=== PATIENT | male | born 1940 | race Caucasian/White ===

== ENCOUNTER 2020-12-11 15:07 | Inpatient (IN) | payer MEDICARE, OTHER ==
[~2020-12-11] VITALS: Ht 175.3 cm; Wt 92.5 kg
--- NOTE | 2020-12-11 14:33 | NUR ---
PT RECIEVED BY PRIVATE CAR TO ROOM 1111B,ORIENTED TO ROOM AND SURROUNDINGS.CL IN REACH.INCISIONS C/D/I.HAS PRESSURE ULCER TO RT BUTTOCK.MEPILEX DRSG APPLIED.
[2020-12-11 16:40] VITALS: BP 140/61; BMI 30.8
[2020-12-11] MEDS ORDERED: NORVASC10 MG PO (18:17)
[2020-12-11] MEDS ORDERED: VITAMIN D325 MC1 PO (18:20)
[2020-12-11] MEDS ORDERED: LIPITOR40 MG PO (18:20)
[2020-12-11] MEDS ORDERED: OSTEO BI-FLEX1 EAC1 PO (18:21)
[2020-12-11] MEDS ORDERED: FLORANEX / LACT1 TAB PO (18:21)
[2020-12-11] MEDS ORDERED: LEVOXYL50 MCG PO (18:22)
[2020-12-11] MEDS ORDERED: FISH OIL 1,0001 CA1 PO (18:22)
[2020-12-11] MEDS ORDERED: BAYER CHEWABLE81 MG PO (18:24)
[2020-12-11] MEDS ORDERED: BUMETANIDE0.5 MG PO (18:24)
[2020-12-11] MEDS ORDERED: PACERONE200 MG PO (18:24)
[2020-12-11] MEDS ORDERED: HYDRALAZINE HCL25 MG PO (18:25)
[2020-12-11] MEDS ORDERED: COLACE100 MG PO (18:25)
[2020-12-11] MEDS ORDERED: OXYBUTYNIN CHLOR5 MG PO (18:26)
[2020-12-11] MEDS ORDERED: METOPROLOL TART25 MG PO (18:26)
[2020-12-11] MEDS ORDERED: POTASSIUM CHLO10 ME1 PO (18:27)
--- NOTE | 2020-12-11 19:45 | NUR ---
AWAKE AND ALERT. RESTING IN BED WITH RESPIRAITONS SLIGHTLY LABORED. STATES HE JUST GOT UP TO BATHROOM AND GOT SHORT OF BREATH. O2/3L ON PER NASAL CANNULA. REMINDED TO ALWAYS CALL FOR ASSISTANCE BEFORE GETTING OUT BED. VOICED UNDERSTANDING. CHEST CABG INCISION HEALING AND NO OPEN AREAS OR DRAINAGE NOTED. LEFT LEG HARVEST SITE INCISIONS HEALING WITH NO DRAINAGE. DRESSING TO LOWER ABDOMEN DRAIN SITE INCSIONS DRY AND INTACT. NO ACUTE DISTRESS NOTED. CALL LIGHT IN REACH.
--- NOTE | 2020-12-12 05:01 | NUR ---
QUIET HOURS. NO ACUTE CHANGES IN CONDITION THIS SHIFT. NO DISTRESS NOTED.
[2020-12-12 06:57] LABS: ANION GAP 10.9 mmol/L (8-16); CALCIUM 8.7 mg/dL (8.5-10.1); CREATININE - SERUM 1.5 mg/dL (0.6-1.3); POTASSIUM - SERUM 3.9 mmol/L (3.5-5.1)
[2020-12-12 07:24] LABS: BASOPHILS 0.2 % (0-2); EOSINOPHILS 6.2 % (0-7); HEMATOCRIT 25.3 % (42.0-54.0); IMMATURE GRANULOCYTES 1.6 % (0-5); LYMPHOCYTE ABS# 1.29 10x3/uL (1.32-3.57); LYMPHOCYTES 13.2 % (15-50); MCH 25.3 pg (26.0-34.0); MCHC 29.6 g/dL (31.0-37.0); MCV 85.5 fL (80.0-100.0); MEAN PLATELET VOLUME 8.7 fL (7.4-10.4); MONOCYTES 8.5 % (2-11); NEUTROPHIL ABS# 6.87 10x3/uL (1.78-5.38); NEUTROPHILS 70.3 % (40-80); PLATELET COUNT 360 10x3/uL (130-400); RBC 2.96 10x6/uL (4.20-6.10); RDW 19.1 % (11.5-14.5); WBC 9.8 10x3/uL (4.8-10.8)
[2020-12-12 07:36] VITALS: BP 116/65
[2020-12-12 07:42] LABS: HEMOGLOBIN 7.5 g/dL (13.5-17.5)
[2020-12-12 13:54] VITALS: BMI 30.7
--- NOTE | 2020-12-12 14:36 | NUR ---
RESTING ON SIDE IN HIS BED IN HIS ROOM. DSG CHANGE DONE TO RT BUTTOCK. INJURY IS 1.5 X 0.5 CM. SHALLOW AND HAS DK PINK WOUND BED. NO S/S INFECTION NOTED. IT IS NOT OPEN AND APPEARS TO BE IN HEALING STAGES. DUODERM APPLIED AND ENCOURAGED HIM TO LAY ON SIDES INSTEAD OF BACK. INSIDE OF LLE IS BRUISED. CHEST INCISION IS HEALING NICELY WITH NO S/S INFECTION. X2 CLOSED INCISIONS NOTED AT BOTTOM OF CHEST INCISION (ACTUALLY ON TOP PART OF ABD). THEY ARE OPEN TO AIR. HE DENIES PAIN BUT C/O SOB WITH EXERTION AND TIRES EASILY. DR CARDOZA WAS MADE AWARE OF HIS LAB VALUES THIS MORNING AND AGAIN IN IDT MEETING AT NOON TODAY. ENOURGED PT TO BREATH THROUGH NOSE AND OUT MOUTH. BED IN LOWEST POSITION, HEAD OF BED ELEVATED APPX 45 DEGREES, SIDE RAILS UP X2, CELL PHONE AND CALL LIGHT IN REACH
--- NOTE | 2020-12-12 19:20 | NUR ---
RECEIVED PT LYING IN BED AWAKE. ALERT AND ORIENTED X4. DENIES ANY NEEDS OR PAIN. NO DISTRESS NOTED. MIDSTERNAL INCISION WELL APPROXIMATED AND HEALING. LLE HARVEST SITE INCISION WELL APPROXIMATED. BED WAIVER SIGNED ON FILE. CALL LIGHT AND WATER WITHIN REACH. FALL PRECAUTIONS IN PLACE. CPOC
[2020-12-12 20:29] VITALS: BP 117/56
[2020-12-13] VITALS (7 sets, daily range): BP systolic 115–175; BP diastolic 56–83
--- NOTE | 2020-12-13 01:34 | NUR ---
PT LYING IN BED SUPINE EYES CLOSED RESTING. HOB ELEVATED. RR EVEN AND UNLABORED. CONTINUES ON O2/3L VIA NC. CALL LIGHT WITHIN REACH. CPOC
--- NOTE | 2020-12-13 05:18 | NUR ---
PT LYING IN BED SUPINE EYES CLOSED RESTING. HOB ELEVATED. NO DISTRESS NOTED. CONTINUES ON O2/3L VIA NC. CALL LIGHT WITHIN REACH. CPOC
--- NOTE | 2020-12-13 15:34 | NUR ---
CARE TEAM MEETING: PATIENT IS NEW TO UNIT. HE ADMITTS TO REHAB FROM [facility]. DC PLANS ARE FOR HIM TO RETURN HOME WITH HIS FAMILY. WILL CONTINUE TO FOLLOW WITH PATIENT.
--- NOTE | 2020-12-13 16:02 | NUR ---
BLOOD STARTED. RT HAND 22G IN PLACE. HE IS VERY SOB WITH MINIMAL EXERTION. SATS IN LOW 90'S WITH OXYGEN SUPPORT OF 3L. NURSE SAT WITH PT FOR FIRST 15 MIN OF BLOOD ADMIN TO MONITOR FOR ADVERSE EFFECTS. CALL LIGHT IN REACH
--- NOTE | 2020-12-13 19:40 | NUR ---
RECEIVED PT SITTING UP IN W/C. ALERT AND ORIENTED X4. SHORTNESS OF BREATH NOTED. O2 SAT 97% ON 4L VIA HF NC. PT STATED HE HAD JUST CAME BACK FROM RESTROOM. VS STABLE. RIGHT HAND IV INFUSING PRBC 125ML/HR. MIDSTERNAL, ABDOMEN, AND LLE INCISION WELL APPROXIMATED OPEN TO AIR. NO DISTRESS NOTED. DENIES NEEDS. C/O 3/10 CHEST DISCOMFORT. DENIES NEED FOR PAIN MEDICATION. CALL LIGHT AND WATER WITHIN REACH. FALL PRECAUTIONS IN PLACE. CPOC
--- NOTE | 2020-12-13 21:37 | NUR ---
2ND UNIT PRBC COMPLETE. PT SITTING UP ON SIDE OF BED. SOB NOTED WITH ACTIVITY. CONTINUES ON 4L VIA HF NC. O2 SAT 95%. DENIES ANY NEEDS OR PAIN. NO DISTRESS NOTED. VS STABLE. CALL LIGHT WITHIN REACH. FALL PRECAUTIONS IN PLACE. CPOC
--- NOTE | 2020-12-14 02:23 | NUR ---
PT LYING IN BED SUPINE EYES CLOSED RESTING. HOB ELEVATED. CONTINUES ON O2/4L VIA NC. RR EVEN AND UNLABORED. NO DISTRESS NOTED. O2 SAT 98% CALL LIGHT WITHIN REACH. CPOC
--- NOTE | 2020-12-14 05:20 | NUR ---
PT SITTING UP ON SIDE OF BED. NO CHANGES IN CONDITION THIS SHIFT. SOB IS A LITTLE BETTER THIS AM. O2 SAT 97% ON 4L O2 VIA NC. SHOWER SETUP PROVIDED PER PT REQUEST. NO OTHER NEEDS VOICED. CALL LIGHT AND WATER WITHIN REACH. FALL PRECAUTIONS IN PLACE. CPOC
[2020-12-14 08:00] VITALS: BP 148/69
[2020-12-14 08:30] LABS: CALCIUM 8.5 mg/dL (8.5-10.1); CARBON DIOXIDE 31.2 mmol/L (21.0-32.0); CREATININE - SERUM 1.4 mg/dL (0.6-1.3); POTASSIUM - SERUM 4.2 mmol/L (3.5-5.1)
[2020-12-14 09:08] LABS: BASOPHILS 0.2 % (0-2); EOSINOPHILS 5.9 % (0-7); HEMATOCRIT 30.2 % (42.0-54.0); HEMOGLOBIN 9.7 g/dL (13.5-17.5); IMMATURE GRANULOCYTES 1.8 % (0-5); LYMPHOCYTE ABS# 0.91 10x3/uL (1.32-3.57); LYMPHOCYTES 8.9 % (15-50); MCH 27.2 pg (26.0-34.0); MCHC 32.1 g/dL (31.0-37.0); MCV 84.8 fL (80.0-100.0); MEAN PLATELET VOLUME 8.6 fL (7.4-10.4); NEUTROPHIL ABS# 7.67 10x3/uL (1.78-5.38); NEUTROPHILS 75.2 % (40-80); PLATELET COUNT 396 10x3/uL (130-400); RBC 3.56 10x6/uL (4.20-6.10); RDW 18.1 % (11.5-14.5); WBC 10.2 10x3/uL (4.8-10.8)
--- NOTE | 2020-12-14 19:19 | NUR ---
AWAKE AND ALERT. SITTING IN WHEELCHAIR WATCHING TV. RESPIRAITONS UNLABORED. NO DISTRESS NOTED. CALL LIGHT IN [facility].
[2020-12-14 19:36] VITALS: BP 139/57
--- NOTE | 2020-12-15 01:16 | NUR ---
SLEEPING WITH RESPIRATIONS UNLABORED. NO DISTRESS NOTED.
--- NOTE | 2020-12-15 05:16 | NUR ---
QUIET HOURS. NO ACUTE CHANGES IN CONDITION THIS SHIFT. RESTING IN BED WITH NO DISTRESS NOTED.
--- NOTE | 2020-12-15 08:00 | NUR ---
SHIFT ASSMT COMPLETED.BREAKFAST GIVEN.CL IN REACH.
[2020-12-15 10:21] VITALS: BP 148/61
--- NOTE | 2020-12-15 12:00 | NUR ---
SITTING UP EATING.CL IN REACH.
--- NOTE | 2020-12-15 19:49 | NUR ---
AWAKE AND ALERT. RESTING IN W/C WITH RESPIRATIONS SLIGHTLY LABORED AT REST AND SHORTNESS OF BREATH WITH MINIMAL EXERTION. O2/4L ON PER NASAL CANNULA. C/O CONTSTIPATION. WILL MEDICATED [facility] MEDICATIONS. CALL LIGHT IN REACH.
[2020-12-15 20:02] VITALS: BP 151/62
--- NOTE | 2020-12-15 20:35 | NUR ---
MILK OF MAGNESIA MIXED WITH SPRITE AND PRUNE JUICE GIVEN FOR C/O CONSTIPATION. WILL MONITOR.
--- NOTE | 2020-12-15 21:30 | NUR ---
ASSISTED TO BATHROOM AND HE HAD A SMALL BM. REQUEST FLEETS ENEMA. FLEETS ENEMA GIVEN WITH SMALL RESULTS OF FORMED STOOL. WILL CONTINUE TO MONITOR.
--- NOTE | 2020-12-15 22:37 | NUR ---
HAD MORE RESULTS FOR LAXATIVE. HAD SOME INCONTINENT STOOL. ASSISTED TO BATHROOM AND IS BEING GIVEN A SHOWER. CONTINUED SHORTNESS OF BREATH NOTED WITH MINIMAL EXERTION. O2/4L ON PER NASAL CANNULA.
--- NOTE | 2020-12-16 05:09 | NUR ---
RESTING IN BED. O2/4L ON PER NASAL CANNULA. NO ACUTE CHANGES IN CONDITION THIS SHIFT. CALL LIGHT IN REACH.
--- NOTE | 2020-12-16 08:00 | NUR ---
SHIFT ASSMT COMPLETED.STATES FEELING SLIGHTLY BETTER FROM YESTERDAY.WEIGHT RECHECKED READING 208 POUNDS
--- NOTE | 2020-12-16 12:00 | NUR ---
NOT HUNGRY TODAY AT THIS TIME.
[2020-12-16 14:58] VITALS: BP 140/64
[2020-12-16 19:00] VITALS: BP 102/63
--- NOTE | 2020-12-16 19:36 | NUR ---
AWAKE AND ALERT. RESTING IN BED WITH RESPIRATIONS UNLABORED AT REST AND SHORTNESS OF BREATH WITH EXERTION. O2/4L ON PER NASAL CANNULA. CALL LIGHT IN REACH.
--- NOTE | 2020-12-17 00:32 | NUR ---
RESTING QUIETLY IN BED WITH NO DISTRESS NOTED.
--- NOTE | 2020-12-17 04:59 | NUR ---
QUIET HOURS. NO ACUTE CHANGES IN CONDITION THIS SHIFT. RESTING IN BED WITH NO DISTRESS NOTED.
[2020-12-17 07:51] VITALS: BP 118/53
[2020-12-17 09:17] LABS: ANION GAP 7.9 mmol/L (8-16); BASOPHILS 0.2 % (0-2); CALCIUM 8.7 mg/dL (8.5-10.1); CARBON DIOXIDE 34.2 mmol/L (21.0-32.0); CREATININE - SERUM 1.6 mg/dL (0.6-1.3); EOSINOPHILS 2.9 % (0-7); HEMATOCRIT 31.1 % (42.0-54.0); HEMOGLOBIN 9.7 g/dL (13.5-17.5); IMMATURE GRANULOCYTES 0.6 % (0-5); LYMPHOCYTE ABS# 0.91 10x3/uL (1.32-3.57); LYMPHOCYTES 8.5 % (15-50); MCH 27.1 pg (26.0-34.0); MCHC 31.2 g/dL (31.0-37.0); MCV 86.9 fL (80.0-100.0); MEAN PLATELET VOLUME 8.4 fL (7.4-10.4); MONOCYTES 10.4 % (2-11); NEUTROPHILS 77.4 % (40-80); PLATELET COUNT 493 10x3/uL (130-400); POTASSIUM - SERUM 3.1 mmol/L (3.5-5.1); RBC 3.58 10x6/uL (4.20-6.10); RDW 18.9 % (11.5-14.5); WBC 10.7 10x3/uL (4.8-10.8)
--- NOTE | 2020-12-17 10:29 | NUR ---
PT HAS NEW DX CHF. DR CLEANING CONSULTED PER DR CARDOZA. HE IS SOB AT ALL TIMES. HIS OXYGEN SAT: SITTING AT REST/OXYGEN 4L IN USE - 93% SITTING AT REST/NO OXYGEN - 88% STANDING/OXYGEN - 92% STANDING/NO OXYGEN - 87%
--- NOTE | 2020-12-17 12:52 | NUR ---
Nutrition Follow-up Diet: Cardiac + Tunde BID PO intake: ~56% average x last 6 meals. States that his appetite is "not good" today. States that he is unsure why he has a decreased appetite. He does not want Ensure. States that he has not been drinking Tunde but that he will start drinking it. Last BM: 12/16/20. Wt: 205# (12/17/20) Meds noted: probiotics, levaquin, bumex, micro-k Labs noted: Na 129(L), K 3.1(L), BUN 32(H), Cr 1.6(H), GFR 44(L), Glu 117(H) Skin: stage II PU to R buttocks Recommend continue current diet. Encouraged PO intake. Recommend continue TUNDE BID for nutrionally aided wound healing. RD will follow-up 12/21/20.
[2020-12-17 16:18] VITALS: Ht 175.3 cm; Wt 92.5 kg
--- NOTE | 2020-12-17 19:00 | NUR ---
RECEIVED PT SITTING UP IN W/C VISITING WITH FAMILY. DENIES ANY NEEDS OR PAIN. CONTINUES ON O2/4L VIA NC. NO DISTRESS NOTED. RIGHT AC IV PATENT. DRESSING AND SWAB CAPS INTACT. CALL LIGHT AND WATER WITHIN REACH. FALL PRECAUTIONS IN PLACE. CPOC
[2020-12-17 21:01] VITALS: BP 115/65
--- NOTE | 2020-12-17 23:28 | NUR ---
PT LYING IN BED SUPINE EYES CLOSED RESTING. HOB ELEVATED. CONTINUES ON O2/4L VIA HF NC. RR EVEN AND UNLABORED. CALL LIGHT WITHIN REACH. CPOC
--- NOTE | 2020-12-18 03:39 | NUR ---
PT LYING IN BED ON RIGHT SIDE EYES CLOSED RESTING. NO DISTRESS NOTED. CALL LIGHT WITHIN REACH. CPOC
[2020-12-18 08:06] VITALS: BP 148/52
--- NOTE | 2020-12-18 10:07 | NUR ---
HAS BEEN UP WITH THERAPY THIS MORNING. STILL ON OXYGEN BUT IS NOW AT 3L NC AND SATS IN MID 90'S. STILL HAS 4+ PITTING EDEMA TO BLE. NOT WEEPING AT PRESENT.
--- NOTE | 2020-12-18 13:00 | RHP ---
PATIENT: DENY TANG MEDICAL RECORD: [id number] ACCOUNT: [id number] LOCATION:[facility]1119 : 36 ADMISSION DATE: 12/11/20 REHABILITATION HISTORY AND PHYSICAL EXAMINATION POST ADMISSION PHYSICIAN EXAMINATION ADMITTING DIAGNOSIS: Coronary artery disease. HISTORY OF PRESENT ILLNESS: The patient was seen for CABG consultation on 11/13/[address] Alcazar's office. He was an established patient. He had noted a blockage in multiple vessels. He was admitted to the [facility] on 12/03/2020 with class III angina, multivessel coronary artery disease and AFib. He underwent coronary artery bypass grafting times 4. He developed shortness of breath and respiratory failure after this. He was diuresed. He was treated appropriately during this stay, was seen by pulmonary throughout his stay for evaluation of his respiratory status. He was cleared by his tail worker, but felt like inpatient rehab was needed before going home with his , he has supervision to mod assist for ADLs. Barriers to returning home at this time include need for decreased burden of care on his , need for close MD oversight on his current cardiac complications. The patient's apparently does not drive, so he has to be able to drive and get around at some point. The best option to maximize his chance is to going home or to come to rehabilitation. COMORBIDITIES: Include acute respiratory failure, acute kidney injury, anemia, coronary artery disease, hypoxia, postop anemia, shortness of breath and weakness. PAST MEDICAL HISTORY: Significant for coronary artery disease. He has got a history of hypertension, CHF, hyperlipidemia. PAST SURGICAL HISTORY: Please see chart. ALLERGIES: ADHESIVE TAPE. CURRENT MEDICATIONS: Include potassium 10 mEq daily, Bumex 1 mg daily, aspirin chewable 81 mg daily, multivitamin daily, omega 3 daily, he is on lactobacillus one tab daily, glucosamine chondroitin sulfate one cap daily, vitamin D 1000 units daily, he is on amlodipine 10 mg daily, Synthroid 50 mcg daily, Eliquis 5 mg b.i.d., Ditropan 5 mg t.i.d., metoprolol 12.5 mg b.i.d., hydralazine 25 mg b.i.d., amiodarone 200 mg b.i.d., Colace daily, atorvastatin 40 mg at bedtime, Cochrane 10/325 one tab every 6 hours p.r.n. and Dulcolax p.r.n. HABITS: No alcohol or tobacco use. FAMILY HISTORY: Noncontributory. SOCIAL HISTORY: The patient hopes to return back home and get back to his prior level of functioning. REVIEW OF SYSTEMS: GENERAL: Does complain of some weakness and fatigue. HEENT: Denies cold, cough or congestion. CARDIOVASCULAR: Denies any chest. HISTORY AND PHYSICAL [id number] DENY TANG PHYSICAL EXAMINATION: VITAL SIGNS: Stable, afebrile. GENERAL: A well-developed elderly gentleman in no acute distress upon exam. HEENT: Normocephalic and atraumatic. Mucosa moist. NECK: Supple with no lymphadenopathy. LUNGS: Clear at this time with no wheezing or rales. HEART: Regular rate and rhythm. No murmurs, rubs or gallops. ABDOMEN: Soft, benign, nondistended. Positive bowel sounds times 4. EXTREMITIES: No clubbing, cyanosis or edema. His skin areas to his chest look pretty good. No signs of infection. NEUROLOGIC: He has pretty good strength. LABORATORY DATA: Admit labs show a white count of 9.8, H&H of 7.5 and 25.3 and platelet count of 360. Sodium is 132, potassium 3.9, BUN and creatinine of 43 and 1.5 and blood sugar is noted to be 130. ASSESSMENT: This is an 80-year-old gentleman admitted to the rehab with a working diagnosis of status post coronary artery bypass grafting x4. The patient has potential to make improvement. We instituted the following multidisciplinary therapies including, not limited to physical, occupational, respiratory, speech, nutritional services, prosthetics and orthotics. Given his complex medical condition and risks for more complications, rehabilitation services cannot be provided at a low level of care such as senior care facility. PLAN: 1. Admit to [facility] for inpatient therapy to include the following disciplines; A. Physical therapy to improve gait, all transfer skills and bed mobility to a modified independent level. B. Occupational therapy to improve activities of daily living. C. Case management to help with discharge planning and placement options. D. Nutrition to assist with nutritional needs. E. Rehabilitation nursing to assist in monitoring the patient's underlying medical condition and to assist with any type of bowel or bladder management. 2. The patient's current medications and medical care will be continued. 3. The patient will be placed on standard fall precautions. 4. We will watch his blood counts closely. I see no reason to transfuse at this time. 5. I will see again in the a.m. and discuss with care team today. TRANSINT:[id number] Voice Confirmation ID: [id number] DOCUMENT ID: [id number] SHARONDA notes whether there has been none or any medical/functional change since admission: - No change since preadmission screen. SHARONDA attests patient continues to be appropriate for IRF: - Continues to be appropriate. HISTORY AND PHYSICAL [id number] DENY TANG,GUY FOLEY MD at 1300 CC: [id number] DICTATION DATE: 12/12/2049 CALIBRATION TESTER: 12/12/20922 ADM IN [facility] [address] [id number]
[2020-12-18 17:46] LABS: ANION GAP 8.7 mmol/L (8-16); CALCIUM 8.5 mg/dL (8.5-10.1); CARBON DIOXIDE 32.6 mmol/L (21.0-32.0); CREATININE - SERUM 1.6 mg/dL (0.6-1.3); POTASSIUM - SERUM 3.3 mmol/L (3.5-5.1)
--- NOTE | 2020-12-18 18:56 | NUR ---
RECEIVED PT SITTING UP IN BED. ALERT AND ORIENTED X4. CONTINUES ON O2/3L VIA NC. SOB NOTED. O2SAT 96%. NO DISTRESS NOTED. LEFT AC SL WITH SOME REDNESS NO INFILTRATION NOTED. PT DENIES ANY TENDERNESS. DRESSING AND SWAB CAP INTACT. BLE +4 PITTING EDEMA. RLE HAS SOME WEEPING AROUND ANKLE AREA. CALL LIGHT AND WATER WITHIN REACH. FALL PRECAUTIONS IN PLACE. CPOC
[2020-12-18 20:15] VITALS: BP 129/69
--- NOTE | 2020-12-19 02:50 | NUR ---
PT LYING IN BED SUPINE EYES CLOSED RESTING. HOB ELEVATED. RR EVEN AND UNLABORED. CONTINUES ON O2/3L VIA NC. NO DISTRESS NOTED. CALL LIGHT WITHIN REACH. CPOC
[2020-12-19 07:49] VITALS: BP 116/49
--- NOTE | 2020-12-19 08:00 | NUR ---
SHIFT ASSMT COMPLETED.CL IN REACH.PLAN TO DC HOME THIS AM
[2020-12-19] MEDS ORDERED: ELIQUIS5 MG PO (08:34)
--- NOTE | 2020-12-19 09:25 | NUR ---
PATIENT DISCHARING HOME TODAY WITH FAMILY. [facility] WILL PROVIDE THERAPY AT HOME. [facility] WILL PROVIDE O2 FOR PATIENT. SHIRA SIGNED, IMM SERVED AND EXPLAINED, ONE GIVEN TO PATIENT AND ONE FILED IN CHART. DR. MINDY ZHAO 12/20/20 @ 10:00, JOANN DOMÍNGUEZ APN 12/25/20 @ 1:15. DC INSTRUCTIONS FAXED TO PCP, HOME HEALTH AND REVIEWED WITH PATIENT AND SPOUSE. COMPARE DATA REVIEWED FOR HOME HEALTH AND PATIENT VOICED UNDERSTANDING.
--- NOTE | 2020-12-19 09:57 | NUR ---
[facility] DELIVERED O2.D/C'D TO HOME WITH O2.REVIWED MEDS,APPT AND INSTRUCTION.
== END 2020-12-19 10:20 | disposition home health service (06) | DRG 302 ==
LOC: D.REHAB 15:07
PROVIDERS: ADMIT Emergency Medicine; ATTEND Emergency Medicine
DX: I25.10 Atherosclerotic heart disease of native coronary artery without angina pectoris (principal); J96.01 Acute respiratory failure with hypoxia; N17.9 Acute kidney failure, unspecified; Z95.1 Presence of aortocoronary bypass graft; D64.9 Anemia, unspecified; R53.1 Weakness; I48.91 Unspecified atrial fibrillation; R53.81 Other malaise; R26.2 Difficulty in walking, not elsewhere classified; I10 Essential (primary) hypertension; E87.8 Other disorders of electrolyte and fluid balance, not elsewhere classified